=== PATIENT | male | born 1980 | race Two or more races ===

== ENCOUNTER 2018-01-22 19:54 | Emergency (ER) | payer BC ==
[~2018-01-22] VITALS: Ht 175.3 cm; Wt 77.1 kg
[2018-01-22] MEDS ORDERED: TETANUS-DIPTH-ACEL PERTUSSIS 0.5ML SYRG IM ONE (20:00)
[2018-01-22] MEDS ORDERED: IBUPROFEN 800 MG TAB PO ONE (20:15)
[2018-01-22 20:18] VITALS: BP 123/90
[2018-01-22] MEDS ORDERED: CEPHALEXIN 250 MG CAP PO ONE ×2 (20:57→21:00)
== END 2018-01-22 21:07 | disposition home or self-care (01) ==
LOC: ER 19:54
DX: S81.812A Laceration without foreign body, left lower leg, initial encounter (principal); S70.212A Abrasion, left hip, initial encounter; V80.010A Animal-rider injured by fall from or being thrown from horse in noncollision accident, initial encounter; Y93.89 Activity, other specified; Y99.8 Other external cause status; Y92.89 Other specified places as the place of occurrence of the external cause
CPT/HCPCS: 73590; 90471; 90715

== ENCOUNTER 2018-04-13 23:23 | Emergency (ER) | payer BC ==
[~2018-04-13] VITALS: Ht 170.2 cm; Wt 78.9 kg
[2018-04-14 00:54] LABS: Basophils # (auto) 0 uL; Basophils % (auto) 0.6 % (0.0-2.0); Eosinophils # (auto) 0.2 uL; Eosinophils % (auto) 3.2 % (0.0-7.0); Hematocrit 49.1 % (41.0-53.0); Hemoglobin 17.2 g/dL (13.5-17.5); Lymphocytes # (auto) 1.7 uL; Mean Corpuscular Hemoglobin 30.6 pg (28.0-32.0); Mean Corpuscular Volume 87.4 fL (80.0-100.0); Monocytes # (auto) 0.4 uL; Monocytes % (auto) 6.9 % (0.0-12.0); Neutrophils # (auto) 3.5 uL; Neutrophils % (auto) 60.3 % (37.0-80.0); Nucleated Red Blood Cells % 0.2 %; Platelet Count (auto) 240 10^3/uL (140-450); Red Blood Cells 5.62 10^6/uL (4.5-5.90); Red Cell Distribution Width 13.1 % (11.8-14.3); White Blood Cell 5.9 10^3/uL (4.4-10.8)
[2018-04-14 01:08] LABS: Albumin 3.8 g/dL (3.4-5.0); Calcium 8.5 mg/dL (8.5-10.1); Potassium 4.5 mmol/L (3.5-5.1)
[2018-04-14 01:18] LABS: Bilirubin, Total 0.4 mg/dL (0.2-1.0)
[2018-04-14 01:41] LABS: BUN/Creatinine Ratio 12.5; Total Protein 7.8 g/dL (6.4-8.2)
[2018-04-14 06:40] VITALS: BP 117/76
== END 2018-04-14 06:45 | disposition home or self-care (01) ==
LOC: ER 23:25 → EEVIPCON 23:25 → ER 04-14 06:45
DX: R10.11 Right upper quadrant pain (principal)
CPT/HCPCS: 36415; 74176; 76705; 80053; 84484; 85025

== ENCOUNTER 2018-11-21 19:51 | Emergency (ER) | payer BC ==
[~2018-11-21] VITALS: Ht 172.7 cm; Wt 77.1 kg
[2018-11-21 20:11] VITALS: BP 132/95
[2018-11-21 20:19] LABS: Basophils # (auto) 0 uL; Basophils % (auto) 0.6 % (0.0-2.0); Eosinophils # (auto) 0.1 uL; Eosinophils % (auto) 1.3 % (0.0-7.0); Hematocrit 55.5 % (41.0-53.0); Hemoglobin 18.8 g/dL (13.5-17.5); Lymphocytes # (auto) 1.4 uL; Lymphocytes % (auto) 18.2 % (10.0-50.0); Mean Corpuscular Hgb Conc. 33.9 g/dL (32.0-36.0); Mean Corpuscular Volume 88.7 fL (80.0-100.0); Monocytes # (auto) 0.4 uL; Monocytes % (auto) 5.4 % (0.0-12.0); Neutrophils # (auto) 5.7 uL; Neutrophils % (auto) 74.5 % (37.0-80.0); Nucleated Red Blood Cells % 0.5 %; Platelet Count (auto) 228 10^3/uL (140-450); Red Blood Cells 6.25 10^6/uL (4.5-5.90); White Blood Cell 7.6 10^3/uL (4.4-10.8)
[2018-11-21 20:34] LABS: Albumin 4.5 g/dL (3.4-5.0); Anion Gap 3 (5-15); Blood Urea Nitrogen 12 mg/dL (7-18); Carbon Dioxide 29 mmol/L (21-32); Chloride 105 mmol/L (98-107); Glucose 96 mg/dL (74-106); Magnesium 2.5 mg/dL (1.6-2.6); Potassium 4.5 mmol/L (3.5-5.1); Sodium 137 mmol/L (136-145)
[2018-11-21 20:37] LABS: Alanine Aminotransferase 96 U/L (16-61); Alkaline Phosphatase 91 U/L (45-117); Aspartate Aminotransferase 48 U/L (15-37); BUN/Creatinine Ratio 13.2; Bilirubin, Total 0.4 mg/dL (0.2-1.0); Cholesterol 307 mg/dL (< 200); GFR African American 121 mL/min; GFR Non-African American 100 mL/min; HDL Cholesterol 56 mg/dL (40-59); Total Protein 8.2 g/dL (6.4-8.2); Triglycerides 473 mg/dL (< 150)
== END 2018-11-22 06:48 | disposition home or self-care (01) ==
LOC: EEVIPCON 19:52 → ER 19:52
DX: R07.89 Other chest pain (principal)
CPT/HCPCS: 36415; 71046; 80053; 80061; 83735; 83880; 84443; 84484; 85025; 85379; 93005

== ENCOUNTER → 2019-03-07 | Outpatient (CLI) | payer BC ==
[2019-03-07 08:34] LABS: Basophils # (auto) 0 uL; Basophils % (auto) 0.6 % (0.0-2.0); Eosinophils # (auto) 0.2 uL; Eosinophils % (auto) 3.6 % (0.0-7.0); Hematocrit 52.3 % (41.0-53.0); Hemoglobin 17.5 g/dL (13.5-17.5); Lymphocytes # (auto) 1.9 uL; Lymphocytes % (auto) 32.3 % (10.0-50.0); Mean Corpuscular Hgb Conc. 33.5 g/dL (32.0-36.0); Mean Corpuscular Volume 89.5 fL (80.0-100.0); Monocytes # (auto) 0.4 uL; Monocytes % (auto) 6.9 % (0.0-12.0); Neutrophils # (auto) 3.3 uL; Neutrophils % (auto) 56.6 % (37.0-80.0); Platelet Count (auto) 238 10^3/uL (140-450); Red Blood Cells 5.84 10^6/uL (4.5-5.90); White Blood Cell 5.8 10^3/uL (4.4-10.8)
[2019-03-07 08:51] LABS: Albumin 4.3 g/dL (3.4-5.0); Potassium 4.5 mmol/L (3.5-5.1)
[2019-03-07 08:56] LABS: BUN/Creatinine Ratio 18.7; Bilirubin, Total 0.4 mg/dL (0.2-1.0); Calcium 9.4 mg/dL (8.5-10.1); Total Protein 7.9 g/dL (6.4-8.2)
== END | disposition home or self-care (01) ==
LOC: LAB 08:18
PROVIDERS: ATTEND Internal Medicine
DX: R79.89 Other specified abnormal findings of blood chemistry (principal); R07.9 Chest pain, unspecified; R94.5 Abnormal results of liver function studies; E78.5 Hyperlipidemia, unspecified
CPT/HCPCS: 36415; 80053; 80061; 82306; 84443; 85025

== ENCOUNTER 2020-02-02 21:42 | Emergency (ER) | payer BC ==
[~2020-02-02] VITALS: Ht 172.7 cm; Wt 78.0 kg
[2020-02-02] MEDS ORDERED: SODIUM CHLORIDE 0.9% 1,000 ML IV ONE (21:45)
[2020-02-02 22:23] LABS: Basophils # (auto) 0 10 ^3/uL (0-0.2); Basophils % (auto) 0.7 % (0.0-2.0); Eosinophils # (auto) 0.2 10 ^3/uL (0-0.8); Eosinophils % (auto) 3.5 % (0.0-7.0); Hematocrit 51.1 % (41.0-53.0); Hemoglobin 17.5 g/dL (13.5-17.5); Lymphocytes # (auto) 1.5 10 ^3/uL (0.4-5.4); Lymphocytes % (auto) 27.3 % (10.0-50.0); Mean Corpuscular Hemoglobin 30.1 pg (28.0-32.0); Mean Corpuscular Hgb Conc. 34.2 g/dL (32.0-36.0); Mean Corpuscular Volume 88.1 fL (80.0-100.0); Monocytes # (auto) 0.4 10 ^3/uL (0-1.3); Monocytes % (auto) 6.6 % (0.0-12.0); Neutrophils # (auto) 3.4 10 ^3/uL (1.6-8.6); Neutrophils % (auto) 61.9 % (37.0-80.0); Nucleated Red Blood Cells % 0.2 %; Platelet Count (auto) 210 10^3/uL (140-450); Red Cell Distribution Width 13.2 % (11.8-14.3); White Blood Cell 5.5 10^3/uL (4.4-10.8)
[2020-02-02 22:25] VITALS: BP 127/77
[2020-02-02 22:41] LABS: Albumin 4.1 g/dL (3.4-5.0); Calcium 9.1 mg/dL (8.5-10.1); Potassium 4.4 mmol/L (3.5-5.1)
[2020-02-02 22:44] LABS: BUN/Creatinine Ratio 13.3; Bilirubin, Total 0.4 mg/dL (0.2-1.0); Total Protein 7.5 g/dL (6.4-8.2)
== END 2020-02-02 23:58 | disposition home or self-care (01) ==
LOC: EEVIPCON 21:43 → ER 21:43
DX: K76.0 Fatty (change of) liver, not elsewhere classified (principal)
CPT/HCPCS: 36415; 74176; 76705; 80053; 82150; 83690; 85025; 99285; J7030

== ENCOUNTER 2020-06-03 20:16 | Emergency (ER) | payer BC ==
[~2020-06-03] VITALS: Ht 172.7 cm; Wt 80.3 kg
[2020-06-03 22:09] VITALS: BP 132/96
== END 2020-06-03 23:28 | disposition home or self-care (01) ==
LOC: EEVIPCON 20:16 → ER 20:16
DX: S33.5XXA Sprain of ligaments of lumbar spine, initial encounter (principal); V80.010A Animal-rider injured by fall from or being thrown from horse in noncollision accident, initial encounter; Y93.52 Activity, horseback riding; Y92.89 Other specified places as the place of occurrence of the external cause; Y99.8 Other external cause status
CPT/HCPCS: 72128; 72131; 72192

== ENCOUNTER 2020-07-28 21:27 | Emergency (ER) | payer BC ==
[~2020-07-28] VITALS: Ht 172.7 cm; Wt 79.4 kg
[2020-07-28 21:32] VITALS: BP 143/99
== END 2020-07-29 07:52 | disposition home or self-care (01) ==
LOC: EEVIPCON 21:27 → ER 21:30
DX: B34.9 Viral infection, unspecified (principal); Z20.828 Contact with and (suspected) exposure to other viral communicable diseases
CPT/HCPCS: 36415; 87426; 99283; C9803; U0003

== ENCOUNTER → 2020-12-18 | Outpatient (CLI) | payer BC ==
[2020-12-18 07:23] LABS: Basophils # (auto) 0 10 ^3/uL (0-0.2); Basophils % (auto) 0.9 % (0.0-2.0); Eosinophils # (auto) 0.2 10 ^3/uL (0-0.8); Eosinophils % (auto) 3.7 % (0.0-7.0); Hematocrit 49.2 % (41.0-53.0); Hemoglobin 17.1 g/dL (13.5-17.5); Lymphocytes # (auto) 1.8 10 ^3/uL (0.4-5.4); Mean Corpuscular Hemoglobin 30.3 pg (28.0-32.0); Mean Corpuscular Hgb Conc. 34.8 g/dL (32.0-36.0); Monocytes # (auto) 0.4 10 ^3/uL (0-1.3); Monocytes % (auto) 7.2 % (0.0-12.0); Neutrophils # (auto) 3.2 10 ^3/uL (1.6-8.6); Neutrophils % (auto) 57.2 % (37.0-80.0); Nucleated Red Blood Cells % 0.1 %; Platelet Count (auto) 232 10^3/uL (140-450); Red Blood Cells 5.65 10^6/uL (4.5-5.90); Red Cell Distribution Width 12.8 % (11.8-14.3); White Blood Cell 5.7 10^3/uL (4.4-10.8)
[2020-12-18 09:29] LABS: Free T4 (Free Thyroxine) 1.33 ng/dL (0.89-1.76)
[2020-12-18 09:30] LABS: Free T3 3.65 pg/mL (2.3-4.2); T3 Total 1.08 ng/mL (0.60-1.81)
== END | disposition home or self-care (01) ==
LOC: LAB 07:06
PROVIDERS: ATTEND Internal Medicine
DX: E78.5 Hyperlipidemia, unspecified (principal)
CPT/HCPCS: 36415; 82306; 84439; 84443; 84480; 84481; 85025

== ENCOUNTER 2024-09-04 00:14 | Emergency (ER) | payer BC ==
[~2024-09-04] VITALS: Ht 167.6 cm; Wt 82.7 kg
[~2024-09-04 00:14] MED LIST: AZITTAB PO; CEPH250C PO; COR10OTS LEFTEYE; HYDR-4902 PO
[2024-09-04] MEDS: cloNIDine HCL 0.1 MG TAB PO ONE (00:36)
--- NOTE | 2024-09-04 00:53 | DVH ---
EXAM: CT HEAD WITHOUT CONTRAST INDICATION: Dizziness TECHNIQUE: CT of the head without intravenous contrast. Radiation Dose : 1. Head: CT Dose: CTDI volume is 55.1 mGy. Dose-length product is 883 mGy*cm The dose indicators for CT are the volume Computed Tomography (CT) Dose Index (CTDIvol) and the Dose Length Product (DLP), and are measured in units of mGy and mGy-cm, respectively. These indicators are not patient dose, but values generated from the CT scanner acquisition factors. The report includes radiation exposure data for exposures received during this examination. COMPARISON: None FINDINGS: There is no evidence of acute intracranial hemorrhage, extra-axial collection, mass effect, midline s hift, herniation or hydrocephalus. The ventricles, sulci and cisterns are age appropriate. The rodriguez-white differentiation is intact. Patchy periventricular and subcortical white matter hypoattenuation is nonspecific but may be related to small vessel ischemic disease. The visualized paranasal sinuses and mastoid air cells are clear. The surrounding soft tissues and osseous structures are unremarkable. IMPRESSION: 1. No acute intracranial abnormality. Radiation optimization: All CT scans at this facility use at least one of these dose optimization ruma hniques: automated exposure control mA and/or kV adjustment per patient size (includes targeted exam s where dose is matched to clinical indication) or iterative reconstruction.
[2024-09-04 01:10] VITALS: BP 140/96; PULSE 80; RESP 15; O2SAT 98
--- NOTE | 2024-09-04 01:38 | ED.PDOC ---
History of Present Illness HPI Comments 44-year-old male complaining of mild blurred vision headache. States he was working when he had a coughing fit, he was then started feeling some mild blurred vision. He was blood pressure was high when he checked it 150 mL over 100s. No past history of blood pressure as she was. Patient denies any chest pain no shortness a breath. Chief Complaint: Dizziness Time Seen by MD: 00:23 Primary Care Provider: DENIES Reviewed Notes: Nurses Notes Allergies: Coded Allergies: NO KNOWN ALLERGIES (Unverified , 01/22/18) Home Meds Active Scripts Azithromycin (Zithromax Z-Gurdeep) 250 Mg Tab, 250 MG PO DAILY for 5 Days, #5 TAB Prov:MIKIE CUMMINGS MD 08/28/23 Udnlxuij-Cregnjchm-Rt (Otic) (Cortisporin Otic Soln) [address], 1 DROP LEFTEYE QID for 10 Days, #10 ML 3 Refills Prov:DANIELLE JACKSON DO 08/17/23 Hydrocodone-Acetaminophen (Hydrocodone Bitartrate/AC 5-325 mg) 1 Tab Tab, 1 TAB PO Q6HP PRN for 6 Days, #24 TAB Prov:EDWAR STERN MD 12/26/22 Cephalexin (KEFLEX CAPSULE) 250 Mg Cp, 500 MG PO BID, #14 MG Prov:BOWEN MUELLER MD 09/06/22 Information Source: Patient Mode of Arrival: Ambulatory Past Medical History PAST MEDICAL HISTORY: High Lipids Family History Family History: Reviewed,noncontributory to illness Social History Smoker: Non-Smoker Alcohol: Occasionally Drugs: Denies Drug Use Lives In: Home EENTM: reports: blurred vision Respiratory: reports: cough Neurological: reports: dizziness, headache Physical Exam General Appearance: No Apparent Distress, Normal HEENT: Normal ENT Inspection, Pharynx Normal, TMs Normal Neck: Full Range of Motion, Non-Tender, Normal, Normal Inspection Respiratory: Chest Non-Tender, Lungs Clear, No Accessory Muscle Use, No Respiratory Distress, Normal Breath Sounds Cardiovascular: No Edema, No JVD, No Murmur, No Gallop, Normal Peripheral Pulses, Regular Rate/Rhythm Breast Exam: Deferred Gastrointestinal: No Organomegaly, Non Tender, No Pulsatile Mass, Normal Bowel Sounds, Soft Genitalia: Deferred Pelvic: Deferred Rectal: Deferred Extremities: No calf tenderness, Normal capillary refill, Normal inspection, Normal range of motion, Non-tender, No pedal edema Musculoskeletal : Apperance: Normal Neurologic: Alert, environmental field professional II-XII nml as Tested, No Motor Deficits, Normal Affect, Normal Mood, No Sensory Deficits Cerebellar Function: Normal Reflexes: Normal Skin: Dry, Normal Color, Warm Lymphatic: No Adenopathy Was a procedure done? Was a procedure done?: No Differential Dx Considerations may include: TIA, CVA, [place] X-Ray, Labs, Meds, VS Vital Signs Date Time Temp Pulse Resp B/P (MAP) Pulse Ox O2 Delivery O2 Flow Rate FiO2 09/04/24 01:14 140/96 09/04/24 01:10 80 15 140/96 (111) 98 09/04/24 00:36 155/108 09/04/24 00:26 97.9 74 18 155/108 (124) 99 09/04/24 00:23 73 Current Medications Medications (Trade) Dose Ordered Sig/Casper Route Start Time Stop Time Status Last Admin Clonidine HCl (Catapres Tablet) 0.1 mg ONCE ONCE PO 09/04/24 00:30 09/04/24 00:31 DC 09/04/24 00:36 X-Ray, Labs, Meds, VS Comment Patient reports good improvement in headache and symptoms after clonidine. CT scan negative Time of 1ST Reevaluation: 01:38 Reevaluation 1ST: Improved Patient Education/Counseling: Diagnosis, Treatment Family Education/Counseling: Diagnosis Departure 1 Departure Time of Disposition: 01:37 Impression: Primary Impression: Hypertension Qualified Codes: I10 - Essential (primary) hypertension Disposition: 01 HOME / SELF CARE / HOMELESS Condition: Fair Discharged With: Self Critical Care Note Critical Care Time?: No Stability Stability form required: No Heart Score Heart Score: Heart Score Response (Comments) Value History N/A 0 EKG N/A 0 Age N/A 0 Risk Factors N/A 0 Troponin N/A 0 Total 0 STEPHANIE AMBROCIO Sep 04, 2024 01:38
--- NOTE | 2024-09-05 00:59 | ECG ---
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
== END 2024-09-04 01:58 | disposition home or self-care (01) ==
LOC: ER 00:14 → EEVIPCON 00:14 → ER 01:57
DX: I10 Essential (primary) hypertension (principal); R51.9 Headache, unspecified; R05.9 Cough, unspecified; H53.8 Other visual disturbances; E78.5 Hyperlipidemia, unspecified; Z79.899 Other long term (current) drug therapy
CPT/HCPCS: 70450; 93005

== ENCOUNTER 2025-07-04 13:41 | Outpatient (CLI) | payer BC ==
[2025-07-04 14:05] LABS: Hematocrit 50.5 % (41.0-53.0); Hemoglobin 17.7 g/dL (13.5-17.5); Mean Corpuscular Hemoglobin 30.9 pg (28.0-32.0); Mean Corpuscular Volume 88.3 fL (80.0-100.0); Nucleated Red Blood Cells % 0.5 %
[2025-07-04 14:17] LABS: Urine Protein, UAD Negative (Negative)
[2025-07-04 14:35] LABS: Prostate Specific Antigen 1.33 ng/mL (0.0-4.0)
[2025-07-04 14:36] LABS: Alkaline Phosphatase 89 U/L (46-116); Anion Gap 8 (5-15); BUN/Creatinine Ratio 11.1 (10.0-20.0); Bilirubin, Total 0.8 mg/dL (0.2-1.0); Blood Urea Nitrogen 11 mg/dL (9-23); Calcium 9.6 mg/dL (8.7-10.4); Carbon Dioxide 29 mmol/L (20-31); Chloride 103 mmol/L (98-107); Potassium 4.3 mmol/L (3.5-5.1); Sodium 140 mmol/L (136-145); Total Protein 7.7 g/dL (5.7-8.2)
[2025-07-04 14:39] LABS: Free T4 (Free Thyroxine) 1.46 ng/dL (0.89-1.76)
[2025-07-04 14:42] LABS: Alanine Aminotransferase 132 U/L (7-40); Albumin 4.9 g/dL (3.2-4.8); Glucose 111 mg/dL (74-106)
[2025-07-04 14:54] LABS: Triglycerides 146 mg/dL (< 150)
[2025-07-04 15:08] LABS: Cholesterol 281 mg/dL (< 200); HDL Cholesterol 61 mg/dL (40-59)
== END 2025-07-04 17:00 | disposition home or self-care (01) ==
LOC: LAB 13:41
PROVIDERS: ATTEND Internal Medicine
DX: Z00.00 Encounter for general adult medical examination without abnormal findings (principal)
CPT/HCPCS: 36415; 80053; 80061; 81001; 82306; 82607; 83036; 84153; 84403; 84439; 84443; 85025

== ENCOUNTER → 2025-08-01 | Outpatient (CLI) | payer BC ==
--- NOTE | 2025-08-02 16:28 | DVHSR ---
APPROVED REPORT EXAM: Two-dimensional and M-mode echocardiogram with Doppler and color Doppler. INDICATION Chest Pain RISK FACTORS Height: 68, Weight: 186 DIMENSIONS LVDd 4.4 (3.8-5.7cm) LA (2D) 3.5 (1.9-4.0cm) Aortic Root 3.5 (2.0-3.7cm) LVDs 3.1 (2.5-4.0cm) LA (MM) (1.9-4.0cm) Aortic Cusp Exc 1.7 (1.5-2.0cm) EF (%) 58.0 (55-70%) Rt. Atrium 3.0 (1.9-4.0cm) Asc. Aorta cm IVSd 0.8 (0.7-1.1cm) RV (D) (1.8-2.4cm) PWd 1.0 (0.7-1.1cm) Mitral Valve Mitral Mitral Stenosis E wave 0.73m/s MV Mean GR. mmHg A wave 0.87m/s MV Peak GR. mmHg E/A ratio 0.8 2D MVA cm2 DECEL Time 166ms PRESS 1/2 Time ms Aortic Valve Aortic Valve Aortic Stenosis V1 0.98m/s AO Mean GR. 2mmHg V2 1.05m/s AO Peak GR. 4mmHg LVOT Diameter 2.1 (1.8-2.4cm) Doppler RADHA 3.23cm2 Pulmonic Valve V2 0.80m/s Tricuspid Valve TR Velocity 2.31m/s RVSP 24mmHg Other Information Technically limited study due to body habitus. Off-axis view utilized for apicals. Conclusion Technically good study. Sinus rhythm. Normal chamber sizes. Normal valves. Left ventricular function is preserved at 60% with normal RV function. Dopplers unremarkable. No pericardial effusion masses or vegetations.
== END | disposition home or self-care (01) ==
LOC: XYW 13:08
PROVIDERS: ATTEND Internal Medicine
DX: R07.9 Chest pain, unspecified (principal)
CPT/HCPCS: 93306